=== PATIENT | male | born 1965 | race Asian ===

== ENCOUNTER 2023-05-21 01:01 | Emergency (ER) | payer SELFPAY ==
[2023-05-21 01:06] VITALS: BP 153/113
--- NOTE | 2023-05-21 02:23 | ED.GENMED ---
History of Present Illness
General
Chief Complaint: Numbness
Source: patient
Exam Limitations: none
Time Seen by Provider: 05/21/23 02:06
Nursing documentation reviewed up to this point in time: agreed with
Travel History
Have you had any contact with someone who has COVID-19?: No
Do you have any symptoms of coronavirus? Fever > 100 degrees, chills, cough, shortness of breath, sore throat, loss of taste or smell, muscle aches, or headache?: No
History of Present Illness
History of Present Illness:
This is a 57-year-old gentleman with history of migraine headaches, intermittent hypertension, not maintained on any medications. Tonight after getting up from sitting on the couch he noticed some numbness of his left leg that has persisted and has
not resolved despite walking around a bit. Numbness is global along his left leg to his left buttocks that began 4 to 5 hours ago, has persisted without associated weakness. He now also notices some numbness and tingling of his left distal finger
digits.
He had no arm pain, no weakness to his arm nor hand. He denies headache, denies neck nor back pain. No history of similar episodes in the past.
Prior to tonight he has been feeling well. No recent fever nor GI illness nor URI.
He has not noticed a rash.
Past History
Past History
ED Past Medical History: HTN and Other (Migraine)
ED Past Surgical History: Orthopedic
Patient has exhibited threatening behavior?: No
Social History
Tobacco: Non-smoker
Alcohol: None
Drug: None
Personal:
Living: with family
Employment: Employed
Family History
Family History: Other (Noncontributory)
Phy Exam
Physical Exam
Physical Exam:
GENERAL: 57-year-old gentleman appears his stated age, awake and alert, pleasant, appears in no acute distress. is accompanying
EYE: pupils equal and reactive. Extraocular muscles intact anicteric
NECK: Supple, nontender, no meningismus, no significant adenopathy.
ENT: oral mucosa is moist. No rhinorrhea.
CARDIAC: Regular rate and rhythm. no murmur.
LUNGS: Clear breath sounds bilaterally, no acute respiratory distress, no wheezes/rales/rhonchi
ABDOMEN: Soft, nondistended, without focal tenderness, no r/g, no cvat. normoactive BS.
BACK: No midline bony tenderness. Straight leg raising is negative bilaterally.
NEUROLOGICAL: Alert and oriented x3, no focal neuro deficits. Subjective paresthesias globally to the left lower extremity as well as left palmar distal digits but gross sensation is intact. Motor strength is 5/5 bilaterally. Normal
[id number], normal [id number]. Gait is dickens and steady.
SKIN: Warm and dry, normal color, skin intact. No rash.
MUSCULOSKELETAL: No C/C/E. peripheral pulses are full and equal b/l. No palpable tenderness.
PSYCH: Normal and appropriate interaction.
Course
Orders/Labs/Results
Orders:
Orders
05/21/23 02:21
CT Head W/o Iv Contrast Urgent
Comment:
Reason For Exam: left sided numbness
05/21/23 02:31
CRP [C-Reactive Protein] Urgent
Complete Blood Count/With Diff Urgent
Comprehensive Metabolic Panel Urgent
Sed Rate [Erythrocyte Sed Rate] Urgent
Abnormal Lab Results
05/21/23
02:31
Hgb 12.7 L g/dL
(13.0-18.0)
Hct 37.5 L %
(39.0-52.0)
MCV 75.5 L fL
(80.0-94.0)
MCH 25.6 L pg
(27.0-31.0)
Absolute Monos (auto) 0.8 H 10^3/uL
(0.1-0.6)
Monocytes % 11.2 H %
(1.7-9.3)
Chloride 108 H mmol/L
(98-107)
Glucose 123 H mg/dl
(70-99)
05/21/23 02:31
05/21/23 02:31
Vital Signs
Initial and Last Documented VS:
Initial Vital Signs
Temp Pulse Resp BP Pulse Ox
98.8 F 78 20 153/113 95
05/21/23 01:06 05/21/23 01:06 05/21/23 01:06 05/21/23 01:06 05/21/23 01:06
Last Documented Vital Signs
Temp Pulse Resp BP Pulse Ox
98.8 F 62 15 159/99 100
05/21/23 01:06 05/21/23 02:50 05/21/23 02:50 05/21/23 02:50 05/21/23 02:50
MDM/Problems Addressed
Differential Diagnosis Includes:
Acute global paresthesia left lower extremity and left distal digits of left hand.
No associated weakness and no focal neurodeficits on exam. NIH stroke scale of 0.
There could be some concern for focal tiny CVA versus pressure neuropathy from sitting on the couch. Other consideration is prodrome to migraine headache.
Will check labs and CT of the head.
Will continue to observe.
Patient is noted to be moderately hypertensive, 153/113, similar elevated blood pressures noted May 2021 and much higher blood pressures noted 2020.
Chronic conditions affecting care: HTN ( intermittent) and Neurological disorder (Migraine headaches)
*Radiology
Radiology exam reviewed: radiology read reviewed
*Pulse Oximetry
Patient hypoxic: no
*Critical Care Note
Total Time (30-74mins, 75-104mins- exclusive of procedures): Not Applicable
Update Note
Update Note:
Patient sleeping when undisturbed, easily arousable. Once awake is feeling improved with near complete resolution of paresthesia.
Continues to have no weakness, denies headache.
No focal neurodeficits on exam.
CAT scan is unremarkable, unchanged from previous May 2021.
Labs are unremarkable including negative inflammatory markers.
I suspect a focal pressure neuropathy perhaps while sitting on the couch.
Will discharge to home with recommendations to follow-up with PCP and will refer to neurology as well especially if symptoms return.
Return precautions discussed.
ED Attending Note
-
Portions of this chart may have been created with voice recognition software.� Occasional wrong word or��sound alike� substitutions may have occurred due to the inherent limitations of voice recognition software.
Discharge Plan
Departure
Patient Disposition: Home (Routine Discharge)
Date of Disposition: 05/21/23
Time of Disposition: 04:09
Patient with high blood pressure during this ER visit?: Yes
Condition: Good
Discharge Problem:
Paresthesia of left upper and lower extremity
Instructions: Paresthesia (DC)
Prescriptions:
No Action
ondansetron 4 mg Tablet,Disintegrating
4 mg PO TIDPRN PRN (Reason: nausea/vomiting) Qty: 12 0RF
prochlorperazine maleate [Compazine] 5 mg tablet
5 mg PO BID PRN (Reason: nausea and vomiting) Qty: 10 0RF
Referrals:
Pepe Sinha MD [Active] - Call in 1-3 days for appt
NONE,* [Family Provider] -
Interventions
Interventions:
*General Assessment Last Done: 05/21/23 02:50
ED- Fall Risk Assessment Last Done: 05/21/23 02:50
*ED COVID-19 Vaccine History Last Done: 05/21/23 02:50
ED- Neurological Assessment Last Done: 05/21/23 02:50
[2023-05-21 02:50] VITALS: BP 159/99; BMI 31.1
[2023-05-21 03:15] LABS: % Basophils 1.4 % (0-2); % Eosinophils 4.1 % (0-6); % Immature Granulocytes 0.5 % (0-0.5); % Lymphocytes 20.9 % (20.5-51.1); % Monocytes 11.2 % (1.7-9.3); % Neutrophils 61.9 % (42.2-75.2); Absolute Basophils 0.1 10^3/uL (0-0.2); Absolute Eosinophils 0.3 10^3/uL (0-0.7); Absolute Lymphocytes 1.5 10^3/uL (1.2-3.4); Absolute Monocytes 0.8 10^3/uL (0.1-0.6); Absolute Neutrophils 4.5 10^3/uL (1.4-6.5); Hematocrit 37.5 % (39.0-52.0); Hemoglobin 12.7 g/dL (13.0-18.0); Mean Corp Hgb Conc. 33.9 g/dL (33.0-37.0); Mean Corpuscular Hgb 25.6 pg (27.0-31.0); Mean Corpuscular Volume 75.5 fL (80.0-94.0); Nucleated Red Blood Cells % 0 % (-); Platelet Count 309 10^3/uL (130-400); Red Blood Cell Count 4.97 10^6/uL (4.70-6.10); Red Cell Dist. Width 13.9 % (11.5-14.5); White Blood Cell Count 7.3 10^3/uL (4.8-10.8)
[2023-05-21 03:25] LABS: ALT (SGPT) 31 U/L (0-50); AST (SGOT) 25 U/L (17-59); Albumin 4.1 g/dl (3.5-5.0); Alkaline Phosphatase 67 U/L (38-126); Blood Urea Nitrogen 17 mg/dl (9-20); Calcium 9.1 mg/dl (8.4-10.2); Carbon Dioxide 23 mmol/L (22-30); Chloride 108 mmol/L (98-107); Estimated Creatinine Clearance 97 ml/min; Glucose 123 mg/dl (70-99); Potassium 3.8 mmol/L (3.5-5.1); Sodium 137 mmol/L (135-145); Total Bilirubin 0.3 mg/dl (0.2-1.3); Total Protein 6.5 g/dl (6.3-8.2); eGFR > 60.00
[2023-05-21 03:28] LABS: C-Reactive Protein < 5.00 mg/L (0.0-10.00)
[2023-05-21 03:50] LABS: Erythrocyte Sed Rate 2 mm/hour (0-20)
== END 2023-05-21 04:41 | disposition home or self-care (01) ==
LOC: EMR 01:01
PROVIDERS: EMERGENCY PHYSICIAN Emergency Medicine
DX: R20.2 Paresthesia of skin (principal); R20.0 Anesthesia of skin; G43.909 Migraine, unspecified, not intractable, without status migrainosus; I10 Essential (primary) hypertension
CPT/HCPCS: 99284; 70450; 80053; 85025; 85652; 86140

== ENCOUNTER 2023-07-15 00:30 | Emergency (ER) | payer SELFPAY ==
[2023-07-15 00:36] VITALS: BP 176/116
--- NOTE | 2023-07-15 00:55 | ED.MUSCINJ ---
HPI-Injury
<SLIME Blanchard - Last Filed: 07/15/23 04:58>
General
Chief Complaint: Fall
Source: patient and significant other
Exam Limitations: none
Time Seen by Provider: 07/15/23 00:41
Nursing documentation reviewed up to this point in time: agreed with
Travel History
Have you had any contact with someone who has COVID-19?: No
Do you have any symptoms of coronavirus? Fever > 100 degrees, chills, cough, shortness of breath, sore throat, loss of taste or smell, muscle aches, or headache?: No
History of Present Illness-Injury
Is this injury a work related problem?: No
Is pt an associate of [facility]?: No
Initial Injury comments:
This is a 57 year old male with no significant PMHx who presents to the ER s/p slip and fall x15 min [employer]. Patient's significant other by bedside who witnessed the fall. Patient was walking down the stairs at home when his hand missed the stair
railing and he fell down 5 set of steps. He landed onto his left side. He complains of left rib pain that is worse with inspiration. He also complains of left ankle pain and numbness/tinging with left foot. He reports headache with associated
photophobia. Denies head injury or LOC. He did not have any pain medication at home. He denies any chest pain, palpitations, neck pain, or shortness of breath.
Past History
<SLIME Blanchard - Last Filed: 07/15/23 04:58>
Past History
ED Past Medical History: HTN and Other (Migraine)
ED Past Surgical History: Orthopedic
Patient has exhibited threatening behavior?: No
Social History
Tobacco: Non-smoker
Alcohol: None
Drug: None
Personal:
Living: with family
Employment: Employed
Family History
Family History: Other (Noncontributory)
Review of Systems
<SLIME Blanchard - Last Filed: 07/15/23 04:58>
Review of Systems
Allergies reviewed?: Yes
All Other Systems: Not applicable
Constitutional: Reports no symptoms
EENT: Reports no symptoms
Respiratory: Reports no symptoms
Cardiac: Reports no symptoms
ABD/GI: Reports no symptoms
: Reports no symptoms
Musculoskeletal: Reports other (Left sided rib pain worse with inspiration, Left foot/ankle pain)
Skin: Reports no symptoms
Neurological: Reports headache (Associated photophobia)
Endocrine: Reports no symptoms
Hematologic/Lymphatic: Reports no symptoms
Psychiatric: Reports no symptoms
Phy Exam
<SLIME Blanchard - Last Filed: 07/15/23 04:58>
General Physical Exam
General Presentation: well appearing and mild distress
General Skin: warm and dry
General Habitus: normal
General Mental: alert
General Hydration: appears well hydrated
ENT Exam
ENT Exam: EOMI, pharynx normal, neck supple and normocephalic
Eye Exam
Eye Exam: PERRL, cornea clear and conjunctiva normal
Cardiovascular Exam
Cardiovascular Exam: regular rate/rhythm, no edema, no murmur and normal peripheral pulses
Pulmonary Exam
Pulmonary Exam: lungs clear, no respiratory distress, no rales, no crackles, no rhonchi, no stridor, no wheezing and no cough
Gastrointestinal Exam
Gastrointestinal Exam: normal bowel sounds, non tender, soft, no organomegaly, no pulsatile mass and non distended
Neurological Exam
Neurological Exam: alert, oriented x3, no motor deficits and speech normal
Musculoskeletal Exam
Musculoskeletal Exam: full ROM, no edema, joint swelling (Left ankle swelling, TTP left ankle and foot) and other (TTP and abrasion to the left lateral chest)
Skin Exam
Skin Exam: normal color, warm/dry, no rash and no petechia
Psychiatric Exam
Psychiatric Exam: normal mood/affect
Injury Course
<ST SantoPA - Last Filed: 07/15/23 04:58>
Orders/Labs/Results
Orders:
Orders
07/15/23 00:52
Ankle, left 3 view CR [CR Ankle - Left Min 3 Views ] Urgent
Comment:
Reason For Exam: fall
Foot, Left 3 View [CR Foot - Left Min 3 Views] Urgent
Comment:
Reason For Exam: fall
Ribs, Left 3 View W/PA Chest CR [CR Ribs-left 3 Vw W/pa Chest] Urgent
Comment:
Reason For Exam: fall
07/15/23 02:02
Incentive Spirometry [Rx Incentive Spirometry] [RESP] Urgent
Frequency: q1h while awake
07/15/23 02:03
Splints/Slings/Crut- Treatment ONCE
Oxycodone/Acetaminophen [Percocet 5/325] 1 tablet PO NOW STA
<Ross Berrios DO - Last Filed: 07/15/23 02:37>
Orders/Labs/Results
Orders:
Orders
07/15/23 00:52
Ankle, left 3 view CR [CR Ankle - Left Min 3 Views ] Urgent
Comment:
Reason For Exam: fall
Foot, Left 3 View [CR Foot - Left Min 3 Views] Urgent
Comment:
Reason For Exam: fall
Ribs, Left 3 View W/PA Chest CR [CR Ribs-left 3 Vw W/pa Chest] Urgent
Comment:
Reason For Exam: fall
07/15/23 02:02
Incentive Spirometry [Rx Incentive Spirometry] [RESP] Urgent
Frequency: q1h while awake
07/15/23 02:03
Splints/Slings/Crut- Treatment ONCE
Oxycodone/Acetaminophen [Percocet 5/325] 1 tablet PO NOW STA
<SLIME Blanchard - Last Filed: 07/15/23 04:58>
MDM/Problems Addressed
Differential Diagnosis Includes:
Left rib fracture vs contusion, Left foot/ankle fracture vs sprain
<SLIME Blanchard - Last Filed: 07/15/23 04:58>
*Critical Care Note
Total Time (30-74mins, 75-104mins- exclusive of procedures): Not Applicable
ED Attending Note
<SLIME Blanchard - Last Filed: 07/15/23 04:58>
-
Portions of this chart may have been created with voice recognition software.� Occasional wrong word or��sound alike� substitutions may have occurred due to the inherent limitations of voice recognition software.
<Ross Berrios DO - Last Filed: 07/15/23 02:37>
ED Attending Note
Patient seen and examined by attending physician: Yes
I performed the substantive portion of visit, reviewed & personally made and approve the management plan that is documented in note by myself or CECIL.: Yes
ED Attending Note:
Pleasant 57-year-old male presents with left ankle and foot pain as well as left rib pain. He was walking down the stairs and missed a step stumbling down 5-6 steps. He did not hit his head or lose consciousness. Denies any neck pain. He does
report rib pain on his left. It is painful with inspiration. Patient was seen in conjunction with the PA student. I have reviewed and agree with the history and treatment plan presented. On my independent physical exam, patient is awake, alert,
and oriented x3, minimal acute distress. Left ankle tender to palpation. No knee tenderness to palpation. Good capillary refill in the toes.
Discharge Plan
Departure
Patient Disposition: Home (Routine Discharge)
Date of Disposition: 07/15/23
Time of Disposition: 02:14
Patient with high blood pressure during this ER visit?: Yes
Condition: Good
Discharge Problem:
Ankle sprain, Contusion of rib on left side
Instructions: How to Use an Incentive Spirometer, Ankle Sprain (DC), Contusion (DC), Preventing falls in adults
Prescriptions:
No Action
No Current Medications
0
Referrals:
Radha Gomez CRNP [Family Provider] -
Adam Fregoso MD [Active] -
Activity Restrictions/Additional Instructions:
It was a pleasure meeting you and taking part in your care. We hope for your continued healing and wellness.
Please read discharge instructions in their entirety. However, they are for general education and may not describe your exact diagnosis at discharge. Information on your ER visit and medical conditions were discussed with you along with appropriate
follow up information...
If indicated, please take your medications as instructed and indicated on discharge paperwork.
Please schedule a follow up appointment as directed. Call to schedule an appointment
Please return to the emergency department with ANY change in, persisting, or worsening of symptoms. If any of your symptoms do not improve, or persist, or become more severe within 6-12 hours, please return to the emergency department for further
care.
Please return to the emergency department if you develop a headache, neck pain/stiffness, fever greater than 100.4F, chest pain, shortness of breath, persistent nausea, vomiting, slurred speech, difficulty walking, numbness/tingling, weakness, signs
of infection or any other symptoms that are worrisome to you.
If you have any questions or concerns please do not hesitate to call the Hospital at or E-mail me directly at [email or web address]
Interventions
Interventions:
*Risk Screen - Suicide Last Done: 07/15/23 01:12
*General Assessment Last Done: 07/15/23 01:06
*Neglect/Abuse Screening Last Done: 07/15/23 01:06
ED- Fall Risk Assessment Last Done: 07/15/23 01:14
*ED COVID-19 Vaccine History Last Done: 07/15/23 01:06
*Nursing Disposition Last Done: 07/15/23 02:38
ED-Musculoskeletal Assessment Last Done: 07/15/23 01:14
ED- Neurological Assessment Last Done: 07/15/23 01:14
ED-Skin Assessment Last Done: 07/15/23 01:14
Discharge Date and Time
Discharge Date/Time: 07/15/23 02:48
Print Language: PUERTO RICAN
[2023-07-15 01:00] VITALS: BP 168/113
[2023-07-15 01:06] VITALS: BMI 31.3
[2023-07-15 01:10] VITALS: BP 182/111
[2023-07-15 01:54] VITALS: BP 150/105
[2023-07-15 02:00] VITALS: BP 163/108
[2023-07-15] MEDS: PERCOCET 5/325 1 TABLET PO (02:06)
== END 2023-07-15 02:48 | disposition home or self-care (01) ==
LOC: EMR 00:30
PROVIDERS: EMERGENCY PHYSICIAN Student in an Organized Health Care Education/Training Program; FAMILY PHYSICIAN Nurse Practitioner
DX: S93.402A Sprain of unspecified ligament of left ankle, initial encounter (principal); S20.212A Contusion of left front wall of thorax, initial encounter; W10.9XXA Fall (on) (from) unspecified stairs and steps, initial encounter; Y93.01 Activity, walking, marching and hiking; I10 Essential (primary) hypertension
CPT/HCPCS: 99283; 71101; 73610; 73630